=== PATIENT | male | born 1960 | race American Indian/Alaskan Native ===

== ENCOUNTER 2019-04-16 08:06 | Emergency (ER) | payer OTHER, MEDICAID, SELFPAY ==
[2019-04-16 08:16] VITALS: BP 122/74; PULSE 90; PULSE 92; RESP 16; RESP 22; TEMP 36.9; O2SAT 92
[2019-04-16] MEDS: ALBUTEROL/IPRATROPIUM 3 ML AMPUL INH (08:16)
--- NOTE | 2019-04-16 08:52 | DI.RAD.S_ITS ---
PROCEDURE: XR CHEST 2V INDICATIONS: Cough TECHNIQUE: 2 views of the chest were acquired. COMPARISON: None. FINDINGS: Surgical changes and devices: None. Lungs and pleura: Lungs are clear. No pleural effusions or pneumothorax. Mediastinum: Mediastinal contours are normal. Heart size is normal. Bones and chest wall: No suspicious bony abnormalities. Soft tissues appear unremarkable. IMPRESSION: Normal for age, source of current symptoms is not seen. Dictated by: Luis Alfredo Tenorio M.D. on 04/16/2019 at 10:16 Approved by: Luis Alfredo Tenorio M.D. on 04/16/2019 at 10:21
[2019-04-16 09:07] LABS: Add Manual Diff / Slide Review NO; Basophils Absolute Auto 100 /uL (0-100); Basophils Percent Auto 1.2 % (0-2); Eosinophils Absolute Auto 500 /uL (0-450); Hematocrit 41.7 % (41-53); Lymphocytes Absolute Auto 1100 /uL (1100-4500); Lymphocytes Percent Auto 15.6 % (25-40); Mean Corpuscular HGB Conc 33.6 % (30-36); Mean Corpuscular Hemoglobin 30.1 PG (26-34); Mean Corpuscular Volume 89.5 fL (80-100); Monocytes Absolute Auto 400 /uL (0-900); Monocytes Percent Auto 5.4 % (3-14); Neutrophils Absolute Auto 5000 /uL (1500-7000); Neutrophils Percent Auto 70.8 % (50-75); Platelet Count 321 X10^3/uL (150-400); Red Blood Cell Count 4.66 X10^6/uL (4.5-5.9); Red Cell Distribution Width 17.4 % (11.6-14.8)
--- NOTE | 2019-04-16 09:08 | ED_ITS ---
HPI - SOB/Dyspnea General Chief Complaint: Shortness of Breath/Dyspnea Stated Complaint: shortness of breath Time Seen by Provider: 04/16/19 09:07 Source: patient Mode of arrival: Ambulatory History of Present Illness HPI Narrative: 58-year-old male former smoker with history of asthma and COPD presents with increased wheeze and shortness of breath for the past few days. He is out of his rescue inhaler and states he has not had oral steroids in quite some time. He has had a bit of a cough and occasionally some sputum. He is not dizzy nor weak or lightheaded. He denies chest pain. He has had no nausea or vomiting. Shortness of breath is worse with deep breath, cough and exertion MD Complaint: shortness of breath and cough Related Data Previous Rx's Medication Instructions Recorded doxycycline monohydrate 100 mg PO BID 10 Days #20 cap 04/16/19 prednisone 20 mg PO DAILY #5 tab 04/16/19 Allergies Allergy/AdvReac Type Severity Reaction Status Date / Time Sulfa (Sulfonamide Allergy Intermediate Verified 04/16/19 08:14 Antibiotics) Review of Systems Constitutional Constitutional: Denies chills, Denies fatigue, Denies fever(s), Denies frequent falls, Denies lethargy and Denies weakness Eyes Eyes: Denies change in vision, Denies eye discharge, Denies irritation and Denies loss of vision ENT Ears, Nose, Mouth, and Throat: Denies change in voice, Denies dizziness, Denies neck pain, Denies sore throat and Denies throat swelling Cardiovascular Cardiovascular: Denies chest pain, Denies irregular heart rhythm, Denies lightheadedness, Denies palpitations, Denies dyspnea, Denies dyspnea on exertion and Denies orthopnea Respiratory Respiratory: Reports cough, Denies dyspnea, Denies dyspnea on exertion and Reports wheezing Gastrointestinal Gastrointestinal: Denies abdominal pain, Denies change in bowel habits, Denies diarrhea, Denies nausea and Denies vomiting Genitourinary Genitourinary: Denies hematuria, Denies flank pain, Denies urinary incontinence and Denies urinary urgency Musculoskeletal Musculoskeletal: Denies back pain, Denies muscle weakness, Denies neck pain, Denies numbness and Denies tingling Integumentary/Breasts Skin/Breast: Denies pruritus, Denies erythema, Denies rash and Denies wounds Neurologic Neurologic: Denies behavioral changes, Denies confusion, Denies dizziness, Denies frequent falls, Denies loss of vision, Denies numbness, Denies tingling and Denies weakness Psychiatric Psychiatric: Denies anxiety, Denies behavioral changes, Denies confusion, Denies depression, Denies homicidal ideation and Denies suicidal ideation Endocrine Endocrine: Denies fatigue, Denies flushing and Denies palpitations Hematologic/Lymphatic Hematologic/Lymphatic: Denies easy bruising Allergic/Immunologic Allergic/Immunologic: Denies urticaria, Denies throat swelling and Reports wheezing [facility] Social History Smoking Status: Former smoker Social History Smoking Status: Former smoker Exam Narrative Exam Narrative: GENERAL: [58] year old patient appears stated age. Well- nourished, well-developed patient, in mild distress. HEAD: Atraumatic. Normocephalic. EYES: Pupils equal round and reactive. Extraocular motions intact. No scleral icterus. No injection or drainage. ENT: Nose without bleeding, purulent drainage. Throat without erythema, tonsillar hypertrophy or exudate. Airway patent. NECK: Trachea midline. Non tender CARDIOVASCULAR: Regular rate and rhythm without murmurs, gallops, or rubs. RESPIRATORY: Decreased breath sounds bilaterally with prolonged expiratory phase and expiratory wheeze.. GASTROINTESTINAL: Abdomen soft, non-tender, nondistended. EXTREMITIES: No edema or joint tenderness. BACK: Nontender without deformity or crepitance. No flank tenderness. NEURO: AOx3. SKIN: No rash or erythema of visible areas Initial Vital Signs Initial Vital Signs: Vital Signs Temperature 98.4 F 04/16/19 08:16 Pulse Rate 92 H 04/16/19 08:16 Respiratory Rate 16 04/16/19 08:16 Blood Pressure 122/74 04/16/19 08:16 Pulse Oximetry 92 04/16/19 08:16 Course Course Course Narrative: Improvement after DuoNeb Orders Ordered: Discontinued Medications Albuterol/Ipratropium (Duoneb) 3 ml INH NOW ONE Stop: 04/16/19 08:16 Last Admin: 04/16/19 08:16 Dose: 3 ml Documented by: KRISTYN Methylprednisolone (Solu-Medrol 125 Mg Vial) 125 mg IV NOW ONE Stop: 04/16/19 08:53 Last Admin: 04/16/19 09:09 Dose: 125 mg Documented by: VANDANA Vital Signs Vital signs: Vital Signs - 8 hr 04/16/19 08:16 Temperature 98.4 F Pulse Rate 90 Respiratory Rate 22 Blood Pressure 122/74 Pulse Oximetry 92 MDM - SOB/Dyspnea Lab Data Result diagrams: 04/16/19 08:10 04/16/19 08:10 Labs: Lab Results 04/16/19 04/16/19 04/16/19 Range/Units 08:10 08:10 08:10 WBC 7.0 (4.5-11.0) X10^3/uL RBC 4.66 (4.5-5.9) X10^6/uL Hgb 14.0 (13.5-17.5) g/dL Hct 41.7 (41-53) % MCV 89.5 (80-100) fL MCH 30.1 (26-34) PG MCHC 33.6 (30-36) % RDW 17.4 H (11.6-14.8) % Plt Count 321 (150-400) X10^3/uL Neut % (Auto) 70.8 (50-75) % Lymph % (Auto) 15.6 L (25-40) % Fisher % (Auto) 5.4 (3-14) % Eos % (Auto) 7.0 H (2-4) % Baso % (Auto) 1.2 (0-2) % Neut # (Auto) 5000 (0321-5630) /uL Lymph # (Auto) 1100 (8790-8773) /uL Fisher # (Auto) 400 (0-900) /uL Eos # (Auto) 500 H (0-450) /uL Baso # (Auto) 100 (0-100) /uL Sodium 140 (137-145) mmol/L Potassium 4.4 (3.4-5.1) mmol/L Chloride 107 (98-107) mmol/L Carbon Dioxide 22 (22-32) mmol/L BUN 24 H (9-20) mg/dL Creatinine 1.10 (0.66-1.25) mg/dL Estimated GFR > 60.0 (>60) mL/min BUN/Creatinine Ratio 21.8 (6-22) Glucose 105 H (70-100) mg/dL Calcium 9.2 (8.4-10.2) mg/dL Procalcitonin < 0.05 (<0.5) ng/mL Imaging Data Chest x-ray: Radiologist's impression: [address] [address] XRay Report Signed Patient: Michael CoelhoMR#: [id number] : 2Acct:[id number] Age/Sex: 58 / MDate of Service: 04/16/19 Loc: ED Accession Number: [id number] Procedure: XR chest 2V Ordering Provider: Beltran Amaral D.O. PROCEDURE: XR CHEST 2V INDICATIONS: Cough TECHNIQUE: 2 views of the chest were acquired. COMPARISON: None. FINDINGS: Surgical changes and devices: None. Lungs and pleura: Lungs are clear. No pleural effusions or pneumothorax. Mediastinum: Mediastinal contours are normal. Heart size is normal. Bones and chest wall: No suspicious bony abnormalities. Soft tissues appear unremarkable. IMPRESSION: Normal for age, source of current symptoms is not seen. Dictated by: Luis Alfredo Tenorio M.D. on 04/16/2019 at 10:16 Approved by: Luis Alfredo Tenorio M.D. on 04/16/2019 at 10:21 Discharge Plan Departure Patient Disposition: Home Clinical Impression: Atypical pneumonia, Acute exacerbation of chronic obstructive pulmonary disease (COPD) Discharge Date/Time: 04/16/19 10:05 Instructions: DI for Atypical Pneumonia Activity Restrictions/Additional Instructions: *You have been diagnosed with [atypical pneumonia and exacerbation of COPD] *What to do: *Take medications as directed *Follow up with your primary care provider in 2-3 days, call for an appointment. Let them know you were seen in the Emergency Department and that we ask that you be seen in follow up *Return to ER if you should have any new, worsening or concerning symptoms Prescriptions: New prednisone 20 mg tablet 20 mg PO DAILY Qty: 5 RF: 0 doxycycline monohydrate 100 mg capsule 100 mg PO BID 10 Days Qty: 20 RF: 0
[2019-04-16] MEDS: methylPREDNISolone 125 MG/2 ML VIAL IV (09:09)
[2019-04-16 09:22] LABS: BUN Creatinine Ratio 21.8 (6-22); Blood Urea Nitrogen 24 mg/dL (9-20); Calcium 9.2 mg/dL (8.4-10.2); Carbon Dioxide 22 mmol/L (22-32); Chloride 107 mmol/L (98-107); Estimated Glomerular Filt Rate > 60.0 mL/min (>60); Glucose 105 mg/dL (70-100); HEMOLYSIS < 15 (0-50); Potassium 4.4 mmol/L (3.4-5.1); Sodium 140 mmol/L (137-145)
[2019-04-16 09:30] VITALS: BP 120/58; PULSE 75; RESP 20; O2SAT 91
[2019-04-16 09:41] LABS: Procalcitonin < 0.05 ng/mL (<0.5)
[2019-04-16 10:05] VITALS: BP 120/58; PULSE 73; RESP 19; O2SAT 92
== END 2019-04-16 10:05 | disposition home or self-care (01) ==
PROVIDERS: Emergency Provider Emergency Medicine
DX: J44.1 Chronic obstructive pulmonary disease with (acute) exacerbation (principal); J18.9 Pneumonia, unspecified organism
CPT/HCPCS: 36591; 71046; 80048; 84145; 85025; 94150; 94640; 96374; 99282; 99284; J2930

== ENCOUNTER 2019-09-05 06:02 | Emergency (ER) | payer OTHER, MEDICAID, SELFPAY ==
[2019-09-05 06:10] VITALS: BP 122/56; PULSE 105; RESP 22; TEMP 37.6; O2SAT 96; BMI 24.2
--- NOTE | 2019-09-05 06:12 | ED_ITS ---
HPI - Asthma General Chief Complaint: Shortness of Breath/Dyspnea Stated Complaint: has asthma, difficulty breathing Time Seen by Provider: 09/05/19 06:04 Source: patient Mode of arrival: Ambulatory Limitations: no limitations History of Present Illness HPI Narrative: 59-year-old male former smoker with asthma and COPD presents with a chief complaint of increased wheezing and shortness of Breath as well as cough over the past day or so. He denies any chest pain and uses no oxygen at home. His inhaler is not helping. He was last seen for similar symptoms in March. He denies any fever or chills. He has had no nausea or vomiting. MD complaint: asthma attack and wheezing Onset (ago): hour(s) Severity: moderate Context: recent URI Associated symptoms: productive cough Treatments Prior to Arrival: inhaled bronchodilator Related Data Current Asthma Therapy: inhaled bronchodilator Previous Rx's Medication Instructions Recorded prednisone 20 mg PO DAILY #5 tab 04/16/19 doxycycline hyclate 100 mg PO BID #20 tab 09/05/19 prednisone 20 mg PO DAILY #5 tab 09/05/19 Allergies Allergy/AdvReac Type Severity Reaction Status Date / Time Sulfa (Sulfonamide Allergy Intermediate Verified 04/16/19 08:14 Antibiotics) Review of Systems Constitutional Constitutional: Denies chills, Denies fatigue, Denies fever(s), Denies frequent falls, Denies lethargy and Denies weakness Eyes Eyes: Denies change in vision, Denies eye discharge, Denies irritation and Denies loss of vision ENT Ears, Nose, Mouth, and Throat: Denies change in voice, Denies dizziness, Denies neck pain, Denies sore throat and Denies throat swelling Cardiovascular Cardiovascular: Denies chest pain, Denies irregular heart rhythm, Denies lightheadedness, Denies palpitations, Denies dyspnea, Denies dyspnea on exertion and Denies orthopnea Respiratory Respiratory: Reports cough, Denies dyspnea, Denies dyspnea on exertion and Reports wheezing Gastrointestinal Gastrointestinal: Denies abdominal pain, Denies change in bowel habits, Denies diarrhea, Denies nausea and Denies vomiting Genitourinary Genitourinary: Denies hematuria, Denies flank pain, Denies urinary incontinence and Denies urinary urgency Musculoskeletal Musculoskeletal: Denies back pain, Denies muscle weakness, Denies neck pain, Denies numbness and Denies tingling Integumentary/Breasts Skin/Breast: Denies pruritus, Denies erythema, Denies rash and Denies wounds Neurologic Neurologic: Denies behavioral changes, Denies confusion, Denies dizziness, Denies frequent falls, Denies loss of vision, Denies numbness, Denies tingling and Denies weakness Psychiatric Psychiatric: Denies anxiety, Denies behavioral changes, Denies confusion, Denies depression, Denies homicidal ideation and Denies suicidal ideation Endocrine Endocrine: Denies fatigue, Denies flushing and Denies palpitations Hematologic/Lymphatic Hematologic/Lymphatic: Denies easy bruising Allergic/Immunologic Allergic/Immunologic: Denies urticaria, Denies throat swelling and Reports wheezing Patient History Social History Smoking Status: Former smoker Smoking Status: Former smoker Substance Use Type: does not use Exam Narrative Exam Narrative: GENERAL: [51] year old patient appears stated age. Well- nourished, well-developed patient, in mild distress. With some obvious work of breathing HEAD: Atraumatic. Normocephalic. EYES: Pupils equal round and reactive. Extraocular motions intact. No scleral icterus. No injection or drainage. ENT: Nose without bleeding, purulent drainage. Throat without erythema, tonsillar hypertrophy or exudate. Airway patent. NECK: Trachea midline. Non tender CARDIOVASCULAR: Regular rate and rhythm without murmurs, gallops, or rubs. RESPIRATORY: Clear to auscultation. Breath sounds equal bilaterally. No wheezes, rales, or rhonchi. GASTROINTESTINAL: Abdomen soft, non-tender, nondistended. EXTREMITIES: No edema or joint tenderness. BACK: Nontender without deformity or crepitance. No flank tenderness. NEURO: AOx3. SKIN: No rash or erythema of visible areas Initial Vital Signs Initial Vital Signs: Vital Signs Temperature 99.7 F H 09/05/19 06:10 Pulse Rate 105 H 09/05/19 06:10 Respiratory Rate 22 09/05/19 06:10 Blood Pressure 122/56 L 09/05/19 06:10 Pulse Oximetry 96 09/05/19 06:10 Course Orders Ordered: Discontinued Medications Albuterol/Ipratropium (Duoneb) 3 ml INH NOW ONE Stop: 09/05/19 06:12 Last Admin: 09/05/19 06:18 Dose: 3 ml Documented by: MIKEY Albuterol/Ipratropium (Duoneb) 3 ml INH NOW ONE Stop: 09/05/19 06:28 Last Admin: 09/05/19 06:30 Dose: 3 ml Documented by: MIKEY Prednisone (Deltasone) 40 mg PO NOW ONE Stop: 09/05/19 06:12 Last Admin: 09/05/19 06:40 Dose: 40 mg Documented by: MMCTARAL MDM - Asthma MDM Narrative Medical decision making narrative: Patient has near complete resolution of symptoms after above-stated therapies. Peak flow has greatly improved and patient feels significant improvement. Given his history of smoking and productive cough I elected to treat with doxycycline to cover the atypical pne umonias. Patient has been given return precautions and has had his questions answered to his apparent satisfaction. Discharge Plan Departure Patient Disposition: Home Clinical Impression: Acute exacerbation of chronic obstructive pulmonary disease, Atypical pneumonia Asthma exacerbation Qualifiers: Asthma severity: moderate Asthma persistence: unspecified Qualified Code(s): J45.901 - Unspecified asthma with (acute) exacerbation Discharge Date/Time: 09/05/19 06:45 Instructions: DI for Asthma -- Adult Activity Restrictions/Additional Instructions: *You have been diagnosed with [asthma exacerbation, exacerbation COPD, atypical pneumonia] *What to do: *Take medications as directed *Follow up with your primary care provider in 2-3 days, call for an appointment. Let them know you were seen in the Emergency Department and that we ask that you be seen in follow up *Return to ER if you should have any new, worsening or concerning symptoms Prescriptions: New prednisone 20 mg tablet 20 mg PO DAILY Qty: 5 RF: 0 doxycycline hyclate 100 mg tablet 100 mg PO BID Qty: 20 RF: 0 No Action prednisone 20 mg tablet 20 mg PO DAILY Qty: 5 RF: 0
[2019-09-05] MEDS: ALBUTEROL/IPRATROPIUM 3 ML AMPUL INH ×2 (06:18→06:30)
[2019-09-05 06:19] VITALS: O2SAT 96
[2019-09-05] MEDS: predniSONE 20 MG TABLET 40 MG PO (06:40)
[2019-09-05 06:44] VITALS: BP 116/60; PULSE 78; RESP 19; O2SAT 94
== END 2019-09-05 06:45 | disposition home or self-care (01) ==
PROVIDERS: Emergency Provider Emergency Medicine
DX: J44.1 Chronic obstructive pulmonary disease with (acute) exacerbation (principal); J45.901 Unspecified asthma with (acute) exacerbation
CPT/HCPCS: 94150; 94640; 99283

== ENCOUNTER 2020-06-06 12:14 | Emergency (ER) | payer MEDICARE, MEDICAID, SELFPAY ==
[2020-06-06] VITALS (7 sets, daily range): BP systolic 116–137; BP diastolic 59–72; PULSE 72–88; RESP 14–16; TEMP 36.4; O2SAT 93–100; BMI 24.2
--- NOTE | 2020-06-06 12:31 | DI.CT.S_ITS ---
PROCEDURE: CT HEAD/BRAIN WO CON COMPARISON: None. INDICATIONS: fall off chair FINDINGS: Image quality: Excellent. CSF spaces: Basal cisterns are patent. No extra-axial fluid collections. Ventricles are normal in size and shape. Brain: No midline shift. No intracranial masses or hemorrhage. [place]-white matter interface is normal. Skull and face: Calvarium and visualized facial bones are intact, without suspicious lesions. The orbits and retrobulbar are soft tissues are normal. The soft tissues are normal. Sinuses: The paranasal sinuses demonstrate mucosal thickening. IMPRESSION: 1. No acute intracranial abnormality. 2. Paranasal sinusitis. Dictated by: Tobin Bright M.D. on 06/06/2020 at 13:15 Approved by: Tobin Bright M.D. on 06/06/2020 at 13:20
--- NOTE | 2020-06-06 12:31 | DI.RAD.S_ITS ---
PROCEDURE: XR SHOULDER LT MIN 2V INDICATIONS: fall off chair last night TECHNIQUE: 3 views of the shoulder were acquired. COMPARISON: None. FINDINGS: Bones: Radiolucency involving anterior inferior glenoid with questionable cortical disruption is noted concerning for subtle nondisplaced glenoid fracture. No other fracture or dislocation. Osteoarthritic changes in acromioclavicular joint and glenohumeral joint are seen. No suspicious bony lesions. Visualized ribs appear intact. Soft tissues: No suspicious soft tissue calcifications. IMPRESSION: Subtle lucency in anterior inferior glenoid concerning for a subtle nondisplaced fracture. CT of shoulder can be done for further evaluation if indicated. Dictated by: Jeffrey Saavedra M.D. on 06/06/2020 at 12:12 Approved by: Jeffrey Saavedra M.D. on 06/06/2020 at 12:16
--- NOTE | 2020-06-06 12:31 | DI.RAD.S_ITS ---
PROCEDURE: XR CHEST 1V INDICATIONS: fall off chair TECHNIQUE: One view of the chest was acquired. COMPARISON: [facility], CR, XR CHEST 2V, 04/16/2019, 8:54. FINDINGS: Surgical changes and devices: None. Lungs and pleura: Lungs are clear. No pleural effusions or pneumothorax. Mediastinum: Mediastinal contours appear normal. Heart size is normal. Bones and chest wall: No suspicious bony lesions. Overlying soft tissues appear unremarkable. IMPRESSION: No acute cardiopulmonary pathology. Dictated by: Jeffrey Saavedra M.D. on 06/06/2020 at 12:17 Approved by: Jeffrey Saavedra M.D. on 06/06/2020 at 12:17
--- NOTE | 2020-06-06 12:41 | DI.CT.S_ITS ---
PROCEDURE: CT CERVICAL SPINE WO CON INDICATIONS: fall off chair, neck pain TECHNIQUE: Noncontrast 3 mm thick sections acquired from the skull base to the T4 level. Sagittal and coronal reformats were then constructed. For radiation dose reduction, the following was used: automated exposure control, adjustment of mA and/or kV according to patient size. COMPARISON: None. FINDINGS: Image quality: Excellent. BONES: Alignment is normal. Vertebral body heights are normal. No fracture or spondylolisthesis. Lateral masses are aligned. The odontoid is intact. Multilevel degenerative changes are seen with anterior osteophytes. DISCS: There is disc disease at C3-4, C4-5, C5-6, and C6-7. At these levels there is disc space narrowing, disc osteophytes, and endplate degenerative changes. No significant disc bulge is identified, however evaluation of the discs with CT is limited. SOFT TISSUES: No hematoma, adenopathy, or mass. Paraspinal musculature is normal. LUNG APICES: No focal contusion or pneumothorax. LIMITED BRAIN: The visualized brain and skull base are normal. IMPRESSION: 1. No acute traumatic abnormality of the cervical spine. 2. Multilevel disc disease as above. Dictated by: Tobin Bright M.D. on 06/06/2020 at 13:20 Approved by: Tobin Bright M.D. on 06/06/2020 at 13:24
--- NOTE | 2020-06-06 13:03 | ED_ITS ---
HPI - Fall <CLAIR Jean - Last Filed: 06/06/20 18:52> General Chief Complaint: Fall Stated Complaint: L Shoulder Pain / Fall Time Seen by Provider: 06/06/20 12:21 Source: patient Mode of arrival: EMS Limitations: no limitations History of Present Illness HPI Narrative: the patient is a 59-year-old male former smoker with history of COPD who presents with a chief complaint of a fall at 2:00 a.m.. He states he was standing on a chair at kitchen to hike, region in the cabinet to get something out, when he accidentally fell, landing on his left shoulder hitting his head. He presents with a chief complaint of left shoulder pain, head pain and neck pain. He states he has been drinking multiple beers this morning and harder to medicate for the pain. However he has not taken any Motrin or any other p.o. medications. He does not believe that he passed out. States that he got up and went to bed after. He called 911 this morning to come get checked out. The patient states that he has had left rotator cuff surgery prior. He states that his shoulder pain wraps around from his clavicle across to his scapula. Denies any new numbness or tingling, but does note that he has history of fibromyalgia. The patient states he feels overwhelmed with all of his health problems, is worried about immigration. Denies any thoughts of hurting himself or anybody else. He denies any chest pain or shortness of breath. Denies any new numbness or tingling. Related Data Previous Rx's Medication Instructions Recorded prednisone 20 mg PO DAILY #5 tab 04/16/19 doxycycline hyclate 100 mg PO BID #20 tab 09/05/19 prednisone 20 mg PO DAILY #5 tab 09/05/19 hydrocodone-acetaminophen [Winston] 1 tab PO Q4-6H PRN #14 tab 06/06/20 ondansetron 4 mg PO Q6H PRN #20 tab 06/06/20 Allergies Allergy/AdvReac Type Severity Reaction Status Date / Time Sulfa (Sulfonamide Allergy Intermediate Verified 06/06/20 12:23 Antibiotics) Review of Systems <CLAIR Jean - Last Filed: 06/06/20 18:52> Review of Systems Narrative: GENERAL: Denies chills, fatigue, malaise, fever, sweats. HEENT: Denies sinus pain, ear pain, sore throat, difficulty swallowing, dizziness. RESPIRATORY: Denies dyspnea, cough, wheezing, hemoptysis, sputum. CARDIOVASCULAR: Denies chest pain, palpitations, orthopnea, edema, GASTROINTESTINAL: Denies nausea, vomiting, abdominal pain, diarrhea, constipation, melena. : Denies dysuria, frequency, incontinence, hematuria, urinary retention. MUSCULOSKELETAL: see HPI SKIN: Denies rash, skin lesions, or other NEUROLOGIC: Denies weakness, headache, numbness, change in speech, confusion, seizures, incoordination. PSYCHIATRIC: No concerning psychosocial issues. 12 point review of systems is negative except for those stated above Patient History <[facility] - Last Filed: 06/06/20 18:52> Social History Smoking Status: Former smoker Smoking Status: Former smoker alcohol intake frequency: 3 or more drinks per day Alcohol type: beer Substance Use Type: does not use Exam <[facility] - Last Filed: 06/06/20 18:52> Narrative Exam Narrative: GENERAL: This is a well-nourished, well-developed patient, in no acute distress HEAD: Atraumatic. Normocephalic. No temporal or scalp tenderness. EYES: Pupils equal round and reactive. Extraocular motions intact. No scleral icterus. No injection or drainage. ENT: Nose without bleeding, purulent drainage or septal hematoma. Throat without erythema, tonsillar hypertrophy or exudate. Uvula midline. Airway patent. NECK: Trachea midline. No JVD or lymphadenopathy. Supple, nontender, no meningeal signs. CARDIOVASCULAR: Regular rate and rhythm RESPIRATORY: Clear to auscultation. Breath sounds equal bilaterally. No wheezes, rales, or rhonchi. no pain to palpation of chest wall. No anterior posterior chest wall compression pain, no pain with lateral chest wall compression GASTROINTESTINAL: Abdomen soft, non-tender, nondistended. No hepato- splenomegaly, or palpable masses. No guarding. Active bowel sounds all 4 quadrants. EXTREMITIES: general pain to palpation left shoulder around left scapula. able to squeeze left hand well. Capillary refill less than 2 seconds fingers left hand, positive left radial pulse. No pain to palpation left humerus. Able to fully flex and extend left elbow with no pain able to flex and extend left wrist. BACK: pain to palpation of C-spine. Midline and left side. T and L-spine areNontender without deformity or crepitance. No flank tenderness. NEURO: AOx3. SKIN: No rash or erythema on visible skin Initial Vital Signs Initial Vital Signs: Vital Signs Temperature 97.6 F 06/06/20 12:18 Pulse Rate 77 06/06/20 12:18 Respiratory Rate 14 06/06/20 12:18 Blood Pressure 130/69 06/06/20 12:18 Pulse Oximetry 98 06/06/20 12:18 <Annika Daniel DO - Last Filed: 06/07/20 08:06> Initial Vital Signs Initial Vital Signs: Vital Signs Temperature 97.6 F 06/06/20 12:18 Pulse Rate 77 06/06/20 12:18 Respiratory Rate 14 06/06/20 12:18 Blood Pressure 130/69 06/06/20 12:18 Pulse Oximetry 98 06/06/20 12:18 Procedures <CLAIR Jean - Last Filed: 06/06/20 18:52> Orthopedic Splinting/Casting Injury #1: Side: left Upper Extremity Injury Location: shoulder Upper Extremity Immobilizer: sling/shoulder immobilizer Post splinting neuro exam: intact Post splinting vascular exam: intact Placed by: Nursing Scores <CLAIR Jean - Last Filed: 06/06/20 18:52> GCS Mireya coma scale eye opening: Spontaneous Mireya coma scale verbal response: Orientated Shafter coma scale motor response: Obey commands Mireya coma scale total score: 15 Nexus Score for C-Spine Focal Neurologic deficit present: No Midline spinal tenderness present: Yes Altered level of conciousness present: No Intoxication present: Yes Distracting Injury Present: No Nexus Criteria for C-spine: 2 Course <CLAIR Jean - Last Filed: 06/06/20 18:52> Orders Ordered: Discontinued Medications Hydrocodone Bitart/Acetaminophen (Winston 5/325) 1 tab PO NOW ONE Stop: 06/06/20 15:05 Last Admin: 06/06/20 15:19 Dose: 1 tab Documented by: JOSELITO Ondansetron HCl (Zofran Odt) 4 mg SL NOW ONE Stop: 06/06/20 15:05 Last Admin: 06/06/20 15:19 Dose: 4 mg Documented by: JOSELITO Vital Signs Vital signs: Vital Signs - 8 hr 06/06/20 12:18 06/06/20 14:42 06/06/20 15:00 Temperature 97.6 F Pulse Rate 77 77 77 Respiratory Rate 14 Blood Pressure 130/69 Pulse Oximetry 98 97 94 06/06/20 15:01 06/06/20 15:56 06/06/20 16:00 Temperature Pulse Rate 72 88 84 Respiratory Rate Blood Pressure 116/59 L Pulse Oximetry 96 96 93 06/06/20 17:06 Temperature Pulse Rate 81 Respiratory Rate 16 Blood Pressure 137/72 Pulse Oximetry 100 <Annika Daniel DO - Last Filed: 06/07/20 08:06> Orders Ordered: Discontinued Medications Hydrocodone Bitart/Acetaminophen (Winston 5/325) 1 tab PO NOW ONE Stop: 06/06/20 15:05 Last Admin: 06/06/20 15:19 Dose: 1 tab Documented by: JOSELITO Ondansetron HCl (Zofran Odt) 4 mg SL NOW ONE Stop: 06/06/20 15:05 Last Admin: 06/06/20 15:19 Dose: 4 mg Documented by: JOSELITO Vital Signs Vital signs: Vital Signs - 8 hr 06/06/20 12:18 06/06/20 14:42 06/06/20 15:00 Temperature 97.6 F Pulse Rate 77 77 77 Respiratory Rate 14 Blood Pressure 130/69 Pulse Oximetry 98 97 94 06/06/20 15:01 06/06/20 15:56 06/06/20 16:00 Temperature Pulse Rate 72 88 84 Respiratory Rate Blood Pressure 116/59 L Pulse Oximetry 96 96 93 06/06/20 17:06 Temperature Pulse Rate 81 Respiratory Rate 16 Blood Pressure 137/72 Pulse Oximetry 100 MDM - Fall <CLAIR Jean - Last Filed: 06/06/20 18:52> Imaging Data Shoulder CT: Radiologist's Impression: [address] [place] [id number] [address] Scan Report Signed Patient: Michael Coelho#: [id number] : 2Acct:[id number] Age/Sex: 59 / MDate of Service: 06/06/20 Loc: ED Accession Number: [id number] Procedure: CT UE LT wo con Ordering Provider: Carolee Vega PROCEDURE: CT UE LT WO CON COMPARISON: [facility], CR, XR SHOULDER LT MIN 2V, 06/06/2020, 12:35. INDICATIONS: left shoulder ? Subtle lucency in anterior inferior glenoid FINDINGS: Bones: There is a comminuted and displaced of the body of the left scapula which extends from the inferior angle/medial border to the inferior glenoid articular surface. The fracture is displaced approximately 1.3 cm at the medial border with no significant displacement at the glenoid articular surface. The left clavicle and the visualized left ribs are intact. The humeral head demonstrates cystic changes of the greater tuberosity. There is a downsloping osteophyte of the acromion which likely causes impingement of the rotator cuff. The left glenoid has osteophytes. The humeral head has an osteophyte of the inferior articular surface. Soft tissues visualized soft tissues are normal. No hemorrhage. Visualized muscles of the left shoulder girdle appear intact without atrophy. IMPRESSION: 1. Fracture of the left scapula involving the inferior glenoid articular surface with displacement medially. 2. Degenerative changes of the left shoulder as above. Dictated by: Tobin Bright M.D. on 06/06/2020 at 14:31 Approved by: Tobin Bright M.D. on 06/06/2020 at 14:41 CT - cervical spine: Radiologist's Impression: [address] [place] [address] CT Scan Report Signed Patient: Michael Coelho#: [id number] : 2At:[id number] Age/Sex: 59 / MDate of Service: 06/06/20 Loc: ED Accession Number: [id number] Procedure: CT cervical spine wo con Ordering Provider: Carolee Vega PROCEDURE: CT CERVICAL SPINE WO CON INDICATIONS: fall off chair, neck pain TECHNIQUE: Noncontrast 3 mm thick sections acquired from the skull base to the T4 level. Sagittal and coronal reformats were then constructed. For radiation dose reduction, the following was used: automated exposure control, adjustment of mA and/or kV according to patient size. COMPARISON: None. FINDINGS: Image quality: Excellent. BONES: Alignment is normal. Vertebral body heights are normal. No fracture or spondylolisthesis. Lateral masses are aligned. The odontoid is intact. Multilevel degenerative changes are seen with anterior osteophytes. DISCS: There is disc disease at C3-4, C4-5, C5-6, and C6-7. At these levels there is disc space narrowing, disc osteophytes, and endplate degenerative changes. No significant disc bulge is identified, however evaluation of the discs with CT is limited. SOFT TISSUES: No hematoma, adenopathy, or mass. Paraspinal musculature is normal. LUNG APICES: No focal contusion or pneumothorax. LIMITED BRAIN: The visualized brain and skull base are normal. IMPRESSION: 1. No acute traumatic abnormality of the cervical spine. 2. Multilevel disc disease as above. Dictated by: Tobin Bright M.D. on 06/06/2020 at 13:20 Approved by: Tobin Bright M.D. on 06/06/2020 at 13:24 Extremity x-ray #1: Radiologist's Impression: [address] [place] [address] XRay Report Signed Patient: Michael CoelhoMR#: [id number] : 2Acct:[id number] Age/Sex: 59 / MDate of Service: 06/06/20 Loc: ED Accession Number: [id number] Procedure: XR shoulder LT min 2V Ordering Provider: Carolee Vega [facility]- PROCEDURE: XR SHOULDER LT MIN 2V INDICATIONS: fall off chair last night TECHNIQUE: 3 views of the shoulder were acquired. COMPARISON: None. FINDINGS: Bones: Radiolucency involving anterior inferior glenoid with questionable cortical disruption is noted concerning for subtle nondisplaced glenoid fracture. No other fracture or dislocation. Osteoarthritic changes in acromioclavicular joint and glenohumeral joint are seen. No suspicious bony lesions. Visualized ribs a ppear intact. Soft tissues: No suspicious soft tissue calcifications. IMPRESSION: Subtle lucency in anterior inferior glenoid concerning for a subtle nondisplaced fracture. CT of shoulder can be done for further evaluation if indicated. Dictated by: Jeffrey Saavedra M.D. on 06/06/2020 at 12:12 Approved by: Jeffrey Saavedra M.D. on 06/06/2020 at 12:16 Chest x-ray: Radiologist's Impression: [address] [place] [id number] XRay Report Signed Patient: Michael CoelhoMR#: [id number] : 2Acct:[id number] Age/Sex: 59 / MDate of Service: 06/06/20 Loc: ED Accession Number: [id number] Procedure: XR chest 1V Ordering Provider: Carolee Vega PROCEDURE: XR CHEST 1V INDICATIONS: fall off chair TECHNIQUE: One view of the chest was acquired. COMPARISON: [facility], , XR CHEST 2V, 04/16/2019, 8:54. FINDINGS: Surgical changes and devices: None. Lungs and pleura: Lungs are clear. No pleural effusions or pneumothorax. Mediastinum: Mediastinal contours appear normal. Heart size is normal. Bones and chest wall: No suspicious bony lesions. Overlying soft tissues appear unremarkable. IMPRESSION: No acute cardiopulmonary pathology. Dictated by: Jeffrey Saavedra M.D. on 06/06/2020 at 12:17 Approved by: Jeffrey Saavedra M.D. on 06/06/2020 at 12:17 [facility] Narrative Medical decision making narrative: The patient is a 51-year-old male who presents with a chief complaint of fall at 2:00 a.m. this morning off of a chair. He had been drinking this morning, thus I cannot clear his head or C- spine and hand pain to C-spine palpation. CT of C-spine was negative, head CT negative, shoulder x-ray was inconclusive so CT was obtained and was found of scapular fracture. The patient has no shortness of breath, stable vital signs, is oxygenating well. He has a negative chest x-ray. I spoke with Dr. Dias from [facility], who states that the patient's scapular fractures not operative though other trauma should be considered given how much worse it takes to fracture scapula. She encouraged pain management And placing patient in a sling and follow-up with them. given the patient's presentation and complaints, I spoke with Dr Daniel who states that the patient is likely okay to go home given that he did not have a significant trauma and has been hemodynamically stable throughout his stay in the ER. The patient is neurovascularly intact throughout his stay, does have slight swelling noted In his left sternocleidomastoid area which she states has been present for months to years. he did see Aaron ALY as he is having concerns with his stress levels in immigration, and he was given resources for these. Discussed at length importance of following up with primary care provider as well as [facility]. Patient has no questions or concerns upon discharge and states understanding of return precautions as well as follow-up care. Discharge Plan Departure Patient Disposition: Home Clinical Impression: Closed left scapular fracture Qualifiers: Encounter type: initial encounter Scapula location: unspecified part of scapula Qualified Code(s): S42.102A - Fracture of unspecified part of scapula, left shoulder, initial encounter for closed fracture Accidental fall from chair Qualifiers: Encounter type: initial encounter Qualified Code(s): W07.XXXA - Fall from chair, initial encounter Discharge Date/Time: 06/06/20 17:08 Instructions: How to Use a Sling, How to Prevent Falls, DI for Scapula Fracture Activity Restrictions/Additional Instructions: Thank you for trusting us with your care today. As discussed, your head and neck pictures came back well. Unfortunately you broke your shoulder blade of your left shoulder. Please follow-up with primary care provider as well as [facility]. I have included their contact information in your discharge instruction. I have also given you a prescription of pain medicine and nausea medicine. I sent these prescriptions to [facility] in [place]. I have given you a prescription of a narcotic for pain. Be aware that this can be constipating and sedating. I encouraged taking with a stool softener, pushing fluids and fiber. Do not take and drive, operate heavy machinery, etc. Do not combine it with any other sedating substances such as alcohol. The co mbination of narcotics and alcohol and/or other sedatives can be lethal. please come back to the emergency department for any acute concerns Such as decreased circulation to your hand. You also saw Aaron SHEEBA, he wanted me to give you contact information to the Access Line for a mental health referral. This phone numbers [phone]. he would also like you to have contact information to the [facility] immigration line. You can contact them at [phone]. As discussed, please come back to the emergency department for any acute mental health concerns including thoughts of hurting herself or anybody else. Prescriptions: New hydrocodone-acetaminophen [Winston] 5-325 mg tablet 1 tab PO Q4-6H PRN (Reason: pain) Qty: 14 RF: 0 ondansetron 4 mg tablet,disintegrating 4 mg PO Q6H PRN (Reason: nausea and vomiting) Qty: 20 RF: 0 No Action prednisone 20 mg tablet 20 mg PO DAILY Qty: 5 RF: 0 doxycycline hyclate 100 mg tablet 100 mg PO BID Qty: 20 RF: 0 prednisone 20 mg tablet 20 mg PO DAILY Qty: 5 RF: 0 Referrals: [facility] [Provider Group] Baldo Ohara MD [Non-Staff] - <Annika Daniel DO - Last Filed: 06/07/20 08:06> Cosign ED Attending Cosmeronature Attestation: I was immediately available in the department for consultation. Documentation has been reviewed. I agree with assessment and plan.
--- NOTE | 2020-06-06 13:46 | DI.CT.S_ITS ---
PROCEDURE: CT UE LT WO CON COMPARISON: [facility], CR, XR SHOULDER LT MIN 2V, 06/06/2020, 12:35. INDICATIONS: left shoulder ? Subtle lucency in anterior inferior glenoid FINDINGS: Bones: There is a comminuted and displaced of the body of the left scapula which extends from the inferior angle/medial border to the inferior glenoid articular surface. The fracture is displaced approximately 1.3 cm at the medial border with no significant displacement at the glenoid articular surface. The left clavicle and the visualized left ribs are intact. The humeral head demonstrates cystic changes of the greater tuberosity. There is a downsloping osteophyte of the acromion which likely causes impingement of the rotator cuff. The left glenoid has osteophytes. The humeral head has an osteophyte of the inferior articular surface. Soft tissues visualized soft tissues are normal. No hemorrhage. Visualized muscles of the left shoulder girdle appear intact without atrophy. IMPRESSION: 1. Fracture of the left scapula involving the inferior glenoid articular surface with displacement medially. 2. Degenerative changes of the left shoulder as above. Dictated by: Tobin Bright M.D. on 06/06/2020 at 14:31 Approved by: Tobin Bright M.D. on 06/06/2020 at 14:41
[2020-06-06] MEDS: ONDANSETRON 4 MG ODT SL (15:19)
[2020-06-06] MEDS: HYDROCODONE/ACET 5/325 TABLET 1 TAB PO (15:19)
--- NOTE | 2020-06-06 16:44 | CM.SWNOTE ---
DATA VISUALIZATION DEVELOPER note DATA VISUALIZATION DEVELOPER - Sole Inker Assessment DATA VISUALIZATION DEVELOPER - Sole Inker Assessment Start: 06/06/20 16:27 Freq: Status: Active Protocol: Document 06/06/20 16:28 FABIANA (Rec: 06/06/20 16:44 FABIANA [id number]) DATA VISUALIZATION DEVELOPER/Sole Inker Assessment Time Spent with Patient Start date 06/06/20 Visit Start Time 15:35 End date 06/06/20 Visit End Time 16:15 Total time Care Management spent on 40 patient visit-in minutes Mental Health Screening Include Onset, Duration, Intensity Presenting Problem Patient presents to ED after falling from a chair early in the morning. Patient reports that, immediately after the fall, he self medicated by drinking a few beers and went back to sleep before coming to ED. Per report from ED provider SCOOTER Jean, patient states I can't do this anymore and discusses experiencing significant pain. Patient reports drinking 8-10 beers daily for past year. Precipitating Event(s) Patient fell from chair earlier in day. Patient has experienced multiple familial deaths in past few years. Patient recently started receiving income through [employer], but makes too much through this source to qualify for medicaid, and lost his counseling services. Patient Strengths Patient is motivated to address his physical and mental ila concerns in order to return to the workforce. Current Behavioral Health Provider(s) None. Include Facility, Provider, Ph. # Psych. Hx Mental Health and Chemical Patient reports feeling Dependency depressed and has felt anxious before. Patient reports drinking 8-10 beers daily for roughly 10 years, with small stints of sobriety. Family Hx of Behavioral Abuse None reported. Psychiatric Hospitalizations (date(s)/ None reported. location) Psychosocial information & Support Patient is a 59 y/o male who Systems experiences chronic pain from numerous injuries. Patient's income is coming from [employer] and patient has been living in a motel since November. Patient reports he will be unable to afford motel starting in July,. Patient reports few friends and is [place]. School/Work None. Legal Concerns Legal Matters - Outstanding Issues Patient is having difficulty renewing his permanent resident card Mental Status Orientation (Person/Place/Time) Oriented x3 Stated Mood in pain Affect (Congruent with Mood?) dysthymic, normal range, stable. Patient visibly experiencing significant physical pain during assessment. Thought Content - Specify/Describe No hallucinations, delusions, Obsessions, Delusions, Hallucinations or obsessions observed or reported during assessment. Thought Processes (Xoufjto-Zqgcqqgz-Lslj Coherent Wspwvkky-Pgwxzcqu-Lpphejxmcp- Orfsdxgxgilplv-Robqpux-Qkbklhnaytui- Thought Blocking) Speech (Lqbyvs-Rvji-Hjpzeuk-Rapid-Soft- Normal Loud-Pressured) Motor (Imzggh-Vxhwjfizc-Jqfo-Other) Normal Insight (Nlcu-Rxww-Fzru/Limited) Good to Fair Judgement (Ygjg-Ntzl-Feny/Limited) Fair Impulse Control (Adequate-Impaired) Adequate Memory (Oyextruzz-Egyrfv-Bszjgn, Intact for interview, not Impaired-Intact) formally assessed. Concentration (Intact-Impaired) Intact Attention (Intact-Impaired) Intact. Behavior (Appropriate-Inappropriate) Appropriate. Risk Assessment Suicidal Ideation (Plan) No Homicidal Ideation (Plan) No Comment Patient denies SI/HI. Patient reports he feels like I'm spinning my wheels when he takes steps to care for his physical and mental health needs, and states repeatedly that he would never hurt himself or kill himself, and states I don't want to . Intervention Intervention DATA VISUALIZATION DEVELOPER meets with patient. Patient experiencing significant physical pain due to shoulder injury during assessment. Patient denies SI/ HI Patient discusses loss of counseling due to increase in income, and difficulties with immigration. DATA VISUALIZATION DEVELOPER and patient discuss [facility] immigration services, patient expresses interest, and DATA VISUALIZATION DEVELOPER provides phone number to ED Provider SCOOTER Jean for d/c note. DATA VISUALIZATION DEVELOPER asks about patient's interest in counseling and patient reports he would be interested in meeting with a counselor again, and gives DATA VISUALIZATION DEVELOPER consent to contact some of the local agencies. Due to power outage on [facility] , DATA VISUALIZATION DEVELOPER leaves for Sep. DATA VISUALIZATION DEVELOPER gets Access phone number from [employer] and asks ED provider to place this in d/c note as well. DATA VISUALIZATION DEVELOPER re enters room and reviews this with patient, and patient informs DATA VISUALIZATION DEVELOPER he will contact both when he is feeling better . Plan RA Plan Patient to d/c after medical services complete. SHEEBA Beavers
== END 2020-06-06 17:08 | disposition home or self-care (01) ==
PROVIDERS: Emergency Provider Nurse Practitioner Family
DX: S42.102A Fracture of unspecified part of scapula, left shoulder, initial encounter for closed fracture (principal); S09.90XA Unspecified injury of head, initial encounter; M54.2 Cervicalgia; W07.XXXA Fall from chair, initial encounter
CPT/HCPCS: 70450; 71045; 72125; 73030; 73200; 99284; 99285

== ENCOUNTER 2021-03-30 10:42 | Emergency (ER) | payer OTHER, MEDICAID, SELFPAY ==
[2021-03-30 10:51] VITALS: BP 156/69; PULSE 82; RESP 18; TEMP 36.2; O2SAT 99
--- NOTE | 2021-03-30 10:55 | DI.RAD.S_ITS ---
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 COMPARISON: None. FINDINGS: Bones: No fractures or dislocations. No suspicious bony lesions. Age-appropriate bony degenerative changes are seen. Soft tissues: No suspicious soft tissue calcifications. IMPRESSION: No displaced fractures are seen. Please consider a scheduled MRI of the fingers for further evaluation of this patient's functional abnormality (assuming that there is no contraindication). Dictated by: Scar Brown M.D. on 03/30/2021 at 10:17 Approved by: Scar Brown M.D. on 03/30/2021 at 10:19
[2021-03-30] MEDS: ACETAMINOPHEN 325 MG TABLET 650 MG PO (10:58)
[2021-03-30] MEDS: HYDROCODONE/ACET 5/325 TABLET 1 TAB PO (14:00)
[2021-03-30 14:07] VITALS: PULSE 72
--- NOTE | 2021-03-30 14:07 | PC.NURSE ---
unable to extend or bail attacher.
--- NOTE | 2021-03-30 14:48 | ED_ITS ---
HPI - Extremity Injury (Upper) <SCOOTER Verde - Last Filed: 03/30/21 15:00> General Chief Complaint: Extremity Injury, Upper Stated Complaint: Broken pinky finger Time Seen by Provider: 03/30/21 13:39 Source: patient Mode of arrival: Ambulatory Limitations: no limitations History of Present Illness HPI narrative: 60-year-old male presents to the ED with 3 days of left hand 5th digit pain after tripping and jamming finger on bed. His finger is swollen and he is unable to extend his finger. No other injuries occurred. He complains of pain or 03/03. Related Data Previous Rx's Medication Instructions Recorded hydrocodone 5 mg-acetaminophen 325 1 tab PO Q4-6H PRN #14 tab 06/06/ mg tablet ([place]) hydrocodone 5 mg-acetaminophen 325 1 tab PO BID PRN #10 tab 03/30/21 mg tablet Allergies Allergy/AdvReac Type Severity Reaction Status Date / Time Sulfa (Sulfonamide Allergy Intermediate Verified 03/30/21 10:54 Antibiotics) Review of Systems <SCOOTER Verde - Last Filed: 03/30/21 15:00> Review of Systems Narrative: General: denies fever, chills Head/Neck: denies headache, neck pain Eyes: denies visual changes, eye pain Cardio: denies chest pain, palpitations Respiratory: denies shortness of breath, cough GI: denies abdominal pain, nausea, vomiting, or diarrhea : denies dysuria, hematuria MSK: left pinky pain, muscle weakness Skin: denies rash, itching Neuro: denies numbness, tingling Patient History <SCOOTER Verde - Last Filed: 03/30/21 15:00> Social History Smoking Status: Former smoker Smoking Status: Former smoker alcohol intake frequency: 3 or more drinks per day Alcohol type: beer Substance Use Type: does not use Exam <SCOOTER Verde - Last Filed: 03/30/21 15:00> Narrative Exam Narrative: Independently reviewed vitals signs and nursing notes. General: Awake, alert, nontoxic, no cardiorespiratory distress Head/Neck: Atraumatic, neck full range of motion Eyes: EOMI, conjunctiva normal Nose: nares patent, no rhinorrhea Mouth/Throat: moist mucus membranes, posterior pharynx normal, no oral lesions Cardio: Regular rate and rhythm, no peripheral edema Respiratory: respirations unlabored without wheezing, stridor, or rales. No retractions. GI: nondistended MSK: Moves all extremities, neurovascularly intact. Fifth digit on left hand is able to flex on command, unable to extend. Passive extension is possible with pain. Ecchymosis and edema at MCP joint of 5th digit on left hand. Capillary refill distal to injury is less than 2 seconds. Skin: Normal capillary refill, no rash Neuro: Normal speech and cognition, normal gait Initial Vital Signs Initial Vital Signs: Vital Signs Temperature 97.1 F L 03/30/21 10:51 Pulse Rate 82 03/30/21 10:51 Respiratory Rate 18 03/30/21 10:51 Blood Pressure 156/69 H 03/30/21 10:51 Pulse Oximetry 99 03/30/21 10:51 <Annika Daniel DO - Last Filed: 03/30/21 19:45> Initial Vital Signs Initial Vital Signs: Vital Signs Temperature 97.1 F L 03/30/21 10:51 Pulse Rate 82 03/30/21 10:51 Respiratory Rate 18 03/30/21 10:51 Blood Pressure 156/69 H 03/30/21 10:51 Pulse Oximetry 99 03/30/21 10:51 Procedures <SCOOTER Verde - Last Filed: 03/30/21 15:00> Orthopedic Splinting/Casting Injury #1: Time of procedure: 14:00 Side: left Upper Extremity Injury Location: finger Upper Extremity Immobilizer: finger (other) (Fifth finger in extension.) Post splinting neuro exam: intact Post splinting vascular exam: intact Placed by: Nursing Course <SCOOTER Verde - Last Filed: 03/30/21 15:00> Orders Ordered: ED Orders 03/30/21 10:55 XR finger LT min 2V Stat Discontinued Medications Acetaminophen (Acetaminophen 325 Mg Tablet) 650 mg PO NOW ONE Stop: 03/30/21 10:56 Last Admin: 03/30/21 10:58 Dose: 650 mg Documented by: SANJU Hydrocodone Bitart/Acetaminophen (Hydrocodone/Acet 5/325 Tablet) 1 tab PO NOW ONE Stop: 03/30/21 13:53 Last Admin: 03/30/21 14:00 Dose: 1 tab Documented by: SANJU Vital Signs Vital signs: Vital Signs - 8 hr 03/30/21 14:07 Pulse Rate [Left Radial] 72 <Annika Daniel DO - Last Filed: 03/30/21 19:45> Orders Ordered: ED Orders 03/30/21 10:55 XR finger LT min 2V Stat Discontinued Medications Acetaminophen (Acetaminophen 325 Mg Tablet) 650 mg PO NOW ONE Stop: 03/30/21 10:56 Last Admin: 03/30/21 10:58 Dose: 650 mg Documented by: SANJU Hydrocodone Bitart/Acetaminophen (Hydrocodone/Acet 5/325 Tablet) 1 tab PO NOW ONE Stop: 03/30/21 13:53 Last Admin: 03/30/21 14:00 Dose: 1 tab Documented by: SANJU Vital Signs Vital signs: Vital Signs - 8 hr 03/30/21 14:07 Pulse Rate [Left Radial] 72 [facility] - Extremity Injury (Upper) <SCOOTER Verde - Last Filed: 03/30/21 15:00> Imaging Data Extremity x-ray #1: Radiologist's Impression: PROCEDURE:? XR FINGER LT MIN 2V ? INDICATIONS:? fall; unable to extend or jelly filter tender ? TECHNIQUE:? AP hand, 2 views of the 5th finger(s) acquired.? ? COMPARISON:? None. ? FINDINGS:? ? Bones:? No fractures or dislocations.? No suspicious bony lesions.? Age- appropriate bony degenerative changes are seen.? ? Soft tissues:? No suspicious soft tissue calcifications.? IMPRESSION:? No displaced fractures are seen. ? Please consider a scheduled MRI of the fingers for further evaluation of this patient's functional abnormality (assuming that there is no contraindication).? ? ? Dictated by: Scar Brown M.D. on 03/30/2021 at 10:17 ? ? Approved by: Scar Brown M.D. on 03/30/2021 at 10:19 ? [facility] Narrative Medical decision making narrative: 60-year-old male presents to the ED with 3 days of left hand 5th digit pain after tripping and jamming finger on bed. Presumed extensor tendon injury with inability to extensive digit. No fracture on x-ray. Finger was splinted in extension by RN, neurovascularly intact. Vital signs were within normal limits. Patient understands to follow-up with orthopedics in 1 week. Patient is appropriate and amenable to discharge home. Vital signs are stable on repeat examination is unremarkable. Patient has been informed of results. Patient has been given strict return to ER precautions for any new or worsening symptoms. Patient understands to follow up closely with outpatient providers as instructed. Patient understands plan and agrees to discharge home. All questions and concerns answered at this time. Discharge Plan Departure Patient Disposition: Home Clinical Impression: Injury of finger Qualifiers: Encounter type: initial encounter Laterality: left Qualified Code(s): S69.92XA - Unspecified injury of left wrist, hand and finger(s), initial encounter Instructions: DI for Finger Extensor Tendon Injury Prescriptions: New hydrocodone-acetaminophen 5-325 mg tablet 1 tab PO BID PRN (Reason: pain) Qty: 10 RF: 0 No Action hydrocodone-acetaminophen [[place]] 5-325 mg tablet 1 tab PO Q4-6H PRN (Reason: pain) Qty: 14 RF: 0 Referrals: Hieu Bentley MD [Physician] - (Concern for extensor tendon injury of 5th digit) <Annika Daniel DO - Last Filed: 03/30/21 19:45> Cosign ED Attending Cosmeronature Attestation: I was immediately available in the department for consultation. Documentation has been reviewed. I agree with assessment and plan.
== END 2021-03-30 15:04 | disposition home or self-care (01) ==
PROVIDERS: Emergency Provider Nurse Practitioner Critical Care Medicine
DX: S69.92XA Unspecified injury of left wrist, hand and finger(s), initial encounter (principal); W23.0XXA Caught, crushed, jammed, or pinched between moving objects, initial encounter
CPT/HCPCS: 29130; 73140; 99283